=== PATIENT | female | born 1970 | race Caucasian/White ===

== ENCOUNTER 2017-01-02 19:57 | Emergency (ER) | payer OTHER ==
[~2017-01-02] VITALS: Ht 172.7 cm; Wt 123.4 kg
[~2017-01-02 19:57] MED LIST: EPP3/2 IM; SYN137 PO
[2017-01-02 20:01] VITALS: Ht 172.7 cm; Wt 123.4 kg
[2017-01-02] MEDS ORDERED: FAMOTIDINE 20MG/102 ML D5W IV STA (20:15)
[2017-01-02] MEDS ORDERED: DEXAMETHASONE SOD INJ 4 MG/ML VIAL IV STA (20:15)
[2017-01-02 20:26] VITALS: O2SAT 98
[2017-01-02] MEDS ORDERED: LEVO125T4 PO (20:38)
[2017-01-02] MEDS ORDERED: EPINEPHRINE ADULT AUTO-INJECT 0.3 MG SYR IM STA (22:43)
[2017-01-02] MEDS ORDERED: PRED50TA PO (22:46)
[2017-01-02 22:58] VITALS: BP 123/62; PULSE 68; TEMP 36.9; O2SAT 98
--- NOTE | 2017-01-03 18:13 | EMERGENCY ROOM VISIT NOTE ---
History Report prepared by Fernando: Melissa Payan Under the Supervision of: Dr. Larry Pantoja M.D. 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 The patient states that she was stung on the neck by a bee. She has experienced allergic reactions to bees in the past but has never had severe difficulty breathing secondary to them. She has an EpiPen at home, but it is and she did not feel that her symptoms were severe enough to use it. 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 She took 2 Benadryl after being stung but developed lip numbness and tingling after taking them so she came in for further evaluation. The patient is also experiencing a hoarse voice and facial and lip edema. She also had a pruritic rash on her face, but the pruritus resolved with the anti-itch cream that she put on it. The patient adds that she had some chest tightness after being stung, but it has resolved. She also states that her throat feels tight and it feels "weird" to swallow but she is not having any difficulty swallowing. The patient is also experiencing nausea, but states that it could be secondary to the Benadryl because that occasionally happens to her. Pt denies LOC, headache, fevers, chills, diaphoresis, visual changes, neck pain, chest pain, breathing difficulties, vomiting, abdominal pain , back pain, melena, hematochezia, urinary symptoms, weakness, lymphadenopathy, rash other than on her face, or other complaints. The patient denies any problems with taking prednisone in the past. 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 A total of ten systems were reviewed and were otherwise negative. Past Medical & Surgical Medical Problems: (1) Asthma (2) Hypothyroidism Surgical Problems: (1) History of appendectomy (2) History of cholecystectomy (3) Status post breast reduction Family History Cancer Diabetes mellitus Gallbladder disease Heart disease Hypertension Social History Smoking Status: Never Smoker Marital Status: single Occupation Status: employed Current/Historical Medications Scheduled Epinephrine (Epipen), 0.3 MG IM UD Levothyroxine Sodium (Levothyroxine Sodium), 1 TAB PO DAILY Prednisone (Prednisone), 50 MG PO DAILY Allergies Coded Allergies: Lisinopril (Verified Allergy, Severe, internal hives, 01/02/17) Penicillins (Unverified Adverse Reaction, Unknown, INCREASES REFLUX, ) Physical Exam Vital Signs Date Time Temp Pulse Resp B/P (MAP) Pulse Ox O2 Delivery O2 Flow Rate FiO2 01/02/17 22:58 36.9 68 17 123/62 98 01/02/17 22:27 68 17 01/02/17 22:12 70 18 01/02/17 21:57 70 19 01/02/17 21:42 67 19 01/02/17 21:27 72 23 01/02/17 21:24 70 18 123/62 98 Room Air 01/02/17 21:22 123/62 01/02/17 21:12 69 24 01/02/17 20:57 69 17 01/02/17 20:42 70 23 01/02/17 20:27 72 24 01/02/17 20:26 71 01/02/17 20:26 98 Room Air 01/02/17 20:01 36.9 71 16 129/96 99 Room Air Physical Exam GENERAL: Awake, alert, well-appearing, in no distress HENT: Normocephalic, atraumatic. Mild lower lip swelling. Oropharynx unremarkable. EYES: Normal conjunctiva. Sclera non-icteric. NECK: Supple. Hive on right neck without a stinger present. No nuchal rigidity. FROM. No JVD. RESPIRATORY: Clear to auscultation. CARDIAC: Regular rate, normal rhythm. Extremities warm and well perfused. Pulses equal. ABDOMEN: Soft, non-distended. No tenderness to palpation. No rebound or guarding. No masses. RECTAL: Deferred. MUSCULOSKELETAL: Chest examination reveals no tenderness. The back is symmetrical on inspection without obvious abnormality. There is no CVA tenderness to palpation. No joint edema. LOWER EXTREMITIES: Calves are equal size bilaterally and non-tender. No edema. No discoloration. NEURO: Normal sensorium. No sensory or motor deficits noted. SKIN: No rash or jaundice noted. Medical Decision & Procedures Medications Administered Medications (Trade) Dose Ordered Sig/Shona Route Start Time Stop Time Status Last Admin Dose Admin Dexamethasone Sodium Phosphate (Decadron Inj) 10 mg NOW STAT IV 01/02/17 20:15 01/02/17 20:16 DC 01/02/17 20:15 10 MG Famotidine (Pepcid 20mg/100 ml) 20 mg ONE STAT IV 01/02/17 20:15 01/02/17 20:16 DC 01/02/17 20:15 20 MG Epinephrine (Epipen) 0.3 mg UD STAT IM 01/02/17 22:43 01/02/17 22:45 DC 01/02/17 22:57 0.3 MG ED Course 2011: The patient was evaluated in room B10. A complete history and physical exam was performed. 2014: Ordered Famotidine 20 mg IV, Decadron Inj 10 mg IV 2231: I reevaluated the patient. She is feeling much better. I am going to give her an EpiPen to take home with her. Discussed results and discharge instructions: she verbalized understanding and agreement. The patient is ready for discharge. 3: Ordered EpiPen 0.3 mg IM Medical Decision Medication Reconciliation: I attest that I have personally reviewed the patient' s current medication list Blood pressure screening: Patient was found to have normal blood pressure on screening and does not require follow-up. Triage Nursing notes reviewed and agree them. The patient's history was concerning for possible allergic reaction. Differential diagnosis: Etiologies such as allergic reaction, anaphylaxis, urticaria, Robb-Vivek syndrome, toxic epidermal necrolysis, erythema multiforme, cellulitis, as well as others were entertained. Physical examination: As above. ER treatment provided: Continuous cardiac monitoring Pepcid 20 mg IV Decadron 10 mg IV On reassessment the patient felt completely better. It appears the patient had an allergic reaction. The above treatment did well to reverse the symptoms. After prolonged monitoring and frequent reassessments the patient did very well and symptoms resolved. By the evaluation outlined above emergent etiologies such as airway compromise, Robb-Vivek syndrome, toxic epidermal necrolysis, erythema multiforme, cellulitis, as well as others were deemed relatively unlikely. The patient was informed about the findings as listed above. All questions were answered and she was pleased with the treatment. Return instructions were outlined and the patient was discharged in stable condition. Outpatient prescription management: EpiPen prednisone Referral: The patient was referred back to her primary care physician for follow-up in 2- 3 days for a recheck of the current condition. Impression Primary Impression: Allergic reaction Additional Impression: Bee sting Scribe Attestation The scribe's documentation has been prepared under my direction and personally reviewed by me in its entirety. I confirm that the note above accurately reflects all work, treatment, procedures, and medical decision making performed by me. Departure Information Dispostion Home / Self-Care Prescriptions Prednisone (Prednisone) 50 Mg Tab 50 MG PO DAILY for 3 Days, #3 TAB Prov: Larry Pantoja MD 01/02/17 Referrals Evelyn Shah D.O. (PCP) Forms HOME CARE DOCUMENTATION FORM, IMPORTANT VISIT INFORMATION Patient Instructions My [facility] Additional Instructions ALLERGIC REACTION INSTRUCTIONS: DO NOT drive, drink alcohol, operate machinery, or perform dangerous activities today. You were given medications in the ER that can affect your ability to safely function or operate a vehicle. Epi-Pen: Use one injection as instructed for severe allergic reactions associated with shortness of breath, difficulty breathing, or throat or tongue swelling. If you use this injection call 911 or proceed immediately to the nearest Emergency Room. Prednisone 50mg: Once daily until the prescription is finished. It is best to take this earlier in the day as some patients note occasional difficulty falling asleep when taken in the late evening. Diphenhydramine(Benadryl) 25mg: use 25 to 50 mg every six hours for swelling, itching, or hives. This medication is sedating and will cause drowsiness. Avoid alcohol, operating machinery or dangerous equipment, working on ladders or roofs, DRIVING, or situations where being under the influence may be dangerous. Zantac 75: Take two pills twice a day along with Benadryl as needed for swelling , itching, or hives. Most people know this for its affect on the stomach, but it also acts similar to, but less potent than Benadryl for allergic reactions. Both the Benadryl and the Zantac are available [id number]. Continue current medications. Return to the emergency department for worsening of your rash, swelling of your face, lips, tongue, or throat, difficulty breathing, vomiting, or as needed. Follow-up with your primary care physician in 2 to 3 days for a recheck of your current condition. Problem Qualifiers Primary Impression: Allergic reaction Encounter type: initial encounter Qualified Codes: T78.40XA - Allergy, unspecified, initial encounter Additional Impression: Bee sting Encounter type: initial encounter Injury intent: accidental or unintentional Qualified Codes: T63.441A - Toxic effect of venom of bees, accidental (unintentional), initial encounter
== END 2017-01-02 22:59 | disposition home or self-care (01) ==
LOC: C.EDB 19:58
DX: T63.441A Toxic effect of venom of bees, accidental (unintentional), initial encounter (principal); E03.9 Hypothyroidism, unspecified; J45.909 Unspecified asthma, uncomplicated; Z79.899 Other long term (current) drug therapy

== ENCOUNTER → 2017-03-26 | Outpatient (CLI) | payer OTHER ==
[~2017-03-26] MED LIST changes: +LEVO125T4 PO; -SYN137 PO
--- NOTE | 2017-03-27 08:09 | MAMMOGRAPHY REPORT ---
BILATERAL DIGITAL SCREENING MAMMOGRAM TOMOSYNTHESIS WITH CAD: 03/26/2017 CLINICAL HISTORY: Routine screening. Patient has no complaints. TECHNIQUE: Breast tomosynthesis in addition to standard 2D mammography was performed. Current study was also evaluated with a Computer Aided Detection (CAD) system. COMPARISON: Comparison is made to exams dated: 03/23/2016 mammogram, 03/21/2015 mammogram, 03/15/2014 ma mmogram, 03/12/2013 mammogram, 03/06/2012 mammogram, and 12/12/2010 mammogram - [facility] er. BREAST COMPOSITION: The tissue of both breasts is almost entirely fatty. FINDINGS: There is possible skin thickening, architectural distortion and a newly visualized convex appearance of the left anterior breast behind the nipple. Further evaluation with targeted ultrasoun d is recommended. No other suspicious mass, architectural distortion or cluster of microcalcifications is seen bilatera lly. There is evidence of prior reduction mammoplasty and scattered benign-appearing microcalcificat ions. IMPRESSION: ACR BI-RADS CATEGORY 0: INCOMPLETE EVALUATION: NEED ADDITIONAL IMAGING EVALUATION The newly visualized possible skin thickening, architectural distortion and fullness behind the left nipple needs additional imaging evaluation. The patient will be called to schedule an appointment. Approximately 10% of breast cancers are not detected with mammography. A negative mammographic report should not delay biopsy if a clinically suggestive mass is present. Aubree Barton M.D. ay/:03/26/2017 15:39:53 Head Housekeeper: Joan PATHAK(Naomi)([place]), [facility] letter sent: Addl Imaging 0 BI-RADS Code: ACR BI-RADS Category 0: Incomplete Evaluation: Need Additional Imaging Evaluation
== END | disposition home or self-care (01) ==
LOC: C.MAMM 08:35
PROVIDERS: ATTEND Family Medicine
DX: Z12.31 Encounter for screening mammogram for malignant neoplasm of breast (principal); N64.89 Other specified disorders of breast

== ENCOUNTER → 2017-04-01 | Outpatient (CLI) | payer OTHER ==
--- NOTE | 2017-04-01 13:33 | MAMMOGRAPHY REPORT ---
ULTRASOUND OF BOTH BREASTS: 04/01/2017 CLINICAL HISTORY: 46-year-old woman with a personal history of remote reduction mammoplasty called emily carlson from screening mammography for thickening, fullness and possible architectural distortion in the s ubareolar left breast. During diagnostic consultation, the patient reports she has been noticing thickening of the left areo la. No nipple discharge. COMPARISON: Comparison is made to exams dated: 03/26/2017 mammogram, 03/23/2016 mammogram, 03/21/2015 m ammogram, 03/15/2014 mammogram, and 03/12/2013 mammogram - [facility]. FINDINGS: Targeted ultrasound was performed in the periareolar and retroareolar left breast to evalua te for the mammographic fullness, thickening and possible architectural distortion. On visual inspec tion, there is a half-pinon shaped area of smooth thickening of the medial left areola. On ultrasound , there is focal thickening of the left areola measuring up to 9 mm in thickness. This thickening an d and and angular point along the deep margin, but does not definitely extend into the deeper breast parenchyma. Although these findings may be related to prior reduction mammoplasty, there are more pr ominent comparing to remote mammograms and therefore indeterminate. Definitive characterization with tissue sampling is recommended. We will attempt ultrasound-guided core biopsy but if this is unyiel ding, skin biopsy may be needed. IMPRESSION: ACR BI-RADS CATEGORY 4: SUSPICIOUS - FOLLOW-UP RECOMMENDED 1. Left breast ultrasound-guided core biopsy is recommended for focal angular thickening of the left areola, thought to correlate with the mammographic findings. Differential considerations include sc ar tissue and malignancy of both the breast and skin. If pathology results are unyielding, skin biop sy may be needed. These results and recommendations were discussed with the patient at the time of the exam. She tenta tively scheduled the left breast ultrasound guided core biopsy prior to leaving our department. Aubree Barton M.D. ay/:04/01/2017 09:42:58 Triage Rn: Joan PATHAK(Naomi)([place]), [facility] letter sent: Abnormal 4/5 BI-RADS Code: ACR BI-RADS Category 4: Suspicious
== END | disposition home or self-care (01) ==
LOC: C.MAMM 09:18
PROVIDERS: ATTEND Family Medicine
DX: R92.8 Other abnormal and inconclusive findings on diagnostic imaging of breast (principal)

== ENCOUNTER → 2017-04-04 | Outpatient (CLI) | payer OTHER ==
--- NOTE | 2017-04-04 13:14 | Discharge Instructions ---
Discharge Instructions Procedure Procedure Date: Apr 04, 2017. Reason for visit: Left Areola Mass. Discharge Discharge Date: Apr 04, 2017. Discharge Diagnosis: status post breast biopsy Instructions Activity Recommendations: Additional Limitations (see below) Return to School/Work: no limitations Recommended Home Diet: No Limitations Provider Instructions: ACTIVITY RECOMMENDATIONS: * No lifting, pushing, pulling or exercising the affected side for three days. RETURN TO SCHOOL/WORK: * You may return to work/school after the procedure, but do not perform any strenuous activities for 24 to 48 hours. MEDICATIONS: * Tylenol (two 325 mg) every four to six hours if needed for mild pain (if not allergic to Tylenol). DIET: * Resume previous diet. SPECIAL CARE INSTRUCTIONS: * Keep biopsy site dry for 24 hours. May shower after 24 hours, but do not soak (bathe) incision. * May remove Tegaderm (plastic patch) tomorrow AFTER showering. * Leave the steri-strips on for one week. Allow the steri-strips to fall off by themselves. If not off after one week, you may remove them. You may place a Bandaid crosswise over the strips, if desired. * Apply ice 10 minutes on and 10 minutes off as needed. * Wear a bra at bedtime to sleep more comfortably for 2-3 days. * Your referring physician should have the results after approximately 5 to 7 business days. * Call for unusual bleeding, fever, drainage, etc or if you have any questions call during normal business hours or after hours call Dr De Luna, . FOLLOW UP VISIT: Follow-up with Referring Physician as scheduled. Allergies Coded Allergies: Lisinopril (Verified Allergy, Severe, internal hives, 01/02/17) Penicillins (Unverified Adverse Reaction, Unknown, INCREASES REFLUX, ) Adenike Guajardo Recommendations: Call your doctor if: * Temperature above 101 degrees * Pain not relieved by pain medicine ordered * There is increased drainage or redness from any incision * You have any unanswered questions or concerns. Your Doctors Instructions noted above were prepared by provider Renetta De Luna. Patient Signature Section: Patient Instructions Signature Page Shannan Bucio Patient (or Guardian) Signature/Date: I have read and understand the instructions given to me by my caregivers. Caregiver/RN/Doctor Signature/Date: The above-named patient and/or guardian has received patient instructions on this date. + Original Patient Signature Page (only) stays with chart. Please make copy for patient.
--- NOTE | 2017-04-04 15:37 | MAMMOGRAPHY REPORT ---
UNILATERAL LEFT DIGITAL DIAGNOSTIC MAMMOGRAM TOMOSYNTHESIS: 04/04/2017 CLINICAL HISTORY: Status post left breast biopsy. TECHNIQUE: Breast tomosynthesis in addition to standard 2D mammography was performed. Postprocedura l left CC and ML tomosynthesis images including C views were obtained. COMPARISON: Comparison is made to exams dated: 04/01/2017 ultrasound, 03/26/2017 mammogram, 03/23/2016 mammogram, 03/21/2015 mammogram, 03/15/2014 mammogram, and 03/12/2013 mammogram - [facility]ter. BREAST COMPOSITION: The tissue of the left breast is almost entirely fatty. FINDINGS: A new biopsy marker clip is seen within the immediate subareolar breast at the site of the biopsied thickening of the left areola/subareolar breast. No significant postbiopsy hematoma is see n. IMPRESSION: POST PROCEDURE IMAGING FOR MARKER PLACEMENT New biopsy marker clip status post left breast biopsy. Pathology results are pending. Approximately 10% of breast cancers are not detected with mammography. A negative mammographic report should not delay biopsy if a clinically suggestive mass is present. Renetta De Luna M.D. /:04/04/2017 13:59:51 Rug Inspector: Lizet PATHAK(Naomi)([place]), [facility] BI-RADS Code: Post Procedure Imaging For Marker Placement
--- NOTE | 2017-04-04 15:37 | MAMMOGRAPHY REPORT ---
ULTRASOUND GUIDED BIOPSY LEFT BREAST: 04/04/2017 CLINICAL HISTORY: Focal angular thickening of the left areola. PATIENT CONSENT: The procedure, risks and benefits were discussed with the patient and informed writt en consent was obtained. A timeout was performed immediately prior to the procedure. PROCEDURE DESCRIPTION: With ultrasound guidance, aseptic technique, and lidocaine as the local anesth etic (1% lidocaine to anesthetize the skin and 1% lidocaine with epinephrine to anesthetize the deepe r tissues), the focal angular thickening of the left areolar/subareolar breast was sampled 5 times wi th a 14-gauge Achieve biopsy needle. Immediately thereafter, with ultrasound guidance, aseptic techni que, and lidocaine as the local anesthetic, a metallic localizer clip was placed at the biopsy site. Direct pressure was applied to the site immediately post procedure and hemostasis was achieved. Pos tprocedure unilateral mammograms were performed to confirm clip placement. The patient tolerated the procedure without complication. She was given wound care instructions. The specimens were sent to athology for analysis. COMPARISON: Comparison is made to exams dated: 04/01/2017 ultrasound, 03/26/2017 mammogram, 03/23/2016 mammogram, 03/21/2015 mammogram, 03/15/2014 mammogram, and 03/12/2013 mammogram - [facility] nter. IMPRESSION: ULTRASOUND GUIDED BIOPSY Ultrasound guided core needle biopsy of the focal angular thickening of the left areola/subareolar br east, with clip placement. The patient will receive pathology results from her referring provider. Renetta De Luna M.D. ah/:04/04/2017 13:58:28 Book Illustrator: Lizet MACKENZIE)([place]), [facility]
== END | disposition home or self-care (01) ==
LOC: C.MAMM 12:39
PROVIDERS: ATTEND Family Medicine
DX: N63 Unspecified lump in breast (principal); C50.912 Malignant neoplasm of unspecified site of left female breast

== ENCOUNTER → 2017-05-20 | Day surgery (SDC) | payer OTHER ==
[2017-05-13 09:52] VITALS: BMI 41.0
[2017-05-13 10:24] LABS: BASO % 0.7 %; BASO ABS # 0.04 K/uL (0-0.2); COMPLETE YES; EOS % 3.1 %; HEMATOCRIT 37.8 % (37-47); IG% 0.2 %; LYMPH % 25.3 %; LYMPH ABS # 1.49 K/uL (1.2-3.4); MEAN CELL VOLUME 86.9 fL (80-100); MEAN CORPUSCULAR HEMOGLOBIN 28.7 pg (25-34); MEAN CORPUSCULAR HGB CONC 33.1 g/dl (32-36); MEAN PLATELET VOLUME 9.6 fL (7.4-10.4); NEUT % 63.7 %; PLATELET COUNT 336 K/uL (130-400); RED BLOOD COUNT 4.35 M/uL (4.2-5.4); WHITE BLOOD COUNT 5.88 K/uL (4.8-10.8)
--- NOTE | 2017-05-13 10:24 | PAT Medication Instructions ---
Service Date May 13, 2017. Current Home Medication List Albuterol Hfa (Ventolin Hfa), Unknown Dose INH Q6H PRN for ASTHMA Epinephrine (Epipen), 0.3 MG IM UD Levothyroxine Sodium (Levothyroxine Sodium), 1 TAB PO QAM Multivitamin (Multivitamin), 1 TAB PO QAM [Acid Media Producer ], Unknown Dose Medication Instructions For Your Scheduled Surgery Epinephrine (Epipen), 0.3 MG IM UD (use as directed if needed) - Hold the following medications the morning of surgery: [Acid Media Producer], Unknown Dose Multivitamin (Multivitamin), 1 TAB PO QAM - Take the following medications the morning of surgery with a sip of water: Levothyroxine Sodium (Levothyroxine Sodium), 1 TAB PO QAM Albuterol Hfa (Ventolin Hfa), Unknown Dose INH Q6H PRN for ASTHMA (if needed) - Take the following medications as scheduled the night before surgery: Albuterol Hfa (Ventolin Hfa), Unknown Dose INH Q6H PRN for ASTHMA (if needed) If you have any questions please call us at [phone] or [phone] or [phone]
[2017-05-13 10:31] LABS: BUN/CREATININE RATIO 11.9 (10-20); CALCIUM 8.8 mg/dl (8.5-10.1); CREATININE 0.64 mg/dl (0.60-1.20)
[~2017-05-20] VITALS: Ht 170.2 cm; Wt 119.0 kg
[~2017-05-20] MED LIST changes: +ACID REDUCER; +ARISTA ABSORBABLE HEMOSTAT 3GM TOP ONE; +ATROPINE SULFATE 0.1 MG/ML 5ML SYR IV PRN; +BUPIVACAINE/EPINEPHRINE 0.5% MPF 1:200,000 30 ML VIAL ONE; +CEFAZOLIN 2000MG IV PUSH 10 ML IV SCH; +DEXAMETHASONE SOD INJ 4 MG/ML VIAL ONE; +EpHEDrine SULFATE INJ 50 MG/ML AMP IV PRN; +FENTANYL CITRATE INJ 50 MCG/1 ML 2 ML VIAL ONE; +FLUMAZENIL 0.1 MG/1 ML 10 ML VIAL IV PRN; +GLYCOPYRROLATE INJ 0.2 MG/ML VIAL ONE; +HYDR-5688 PO; +HYDROCODONE/ACETAMOPHEN 5/325MG TAB PO PRN; +HYDROmorphone INJ 1 MG/ML SYR IV PRN; +IBUPROFEN 600 MG TAB PO PRN; +LABETALOL HCL IV 5 MG/ML 20ML IV PRN; +LACTATED RINGER'S 1000ML 1,000 ML IV SCH; -LEVO125T4 PO; +LEVO125T5 PO; +LIDOCAINE HCL 2% 2 ML VIAL (20MG/ML) ONE; +MIDAZOLAM HCL 1 MG/ML 2ML VIAL ONE; +MULT-506 PO; +NALOXONE HCL 0.4 MG/1 ML VIAL/CARP IV PRN; +NEOSTIGMINE METHYLSULFATE 5 MG/5 ML SYR ONE; +ONDANSETRON INJ 2 MG/ML 2 ML VIAL IV PRN; +ONDANSETRON INJ 2 MG/ML 2 ML VIAL ONE; +PRLSR20 PO; +PROMETHAZINE HCL INJ 12.5 MG in SODIUM CHLORIDE 0.9% 50ML 50 ML IV PRN; +PROPOFOL IV EMULSION 10 MG/ML 20 ML VIAL IV ONE; +SODIUM CHLORIDE 0.9% 1000ML 1,000 ML IV SCH; +SUCCINYLCHOLINE CHLORIDE 20 MG/ML 10 ML VIAL IV ONE; +VNTHFA/IN INH
[2017-05-20 08:32] LABS: PREG INTERNAL NEGATIVE QC NEG CLEAR BACKGROUND; PREG INTERNAL POSITIVE QC POS CONTROL LINE
--- NOTE | 2017-05-20 08:45 | DIAGNOSTIC IMAGING REPORT ---
NUCLEAR MEDICINE LEFT BREAST LYMPH SENTINEL NODE ID CLINICAL HISTORY: BREAST CA COMPARISON STUDY: No previous studies for comparison. FINDINGS: A timeout was performed. The patient was prepped in sterile fashion. 5 periareolar intradermal injections were performed, utilizing a total dose of 0.49 mCi of technetium 99m Lymphoseek. IMPRESSION: Left breast lymphoscintigraphic injections were performed. Electronically signed by: Margarito Irizarry M.D. 05/20/2017 8:44 AM Dictated Date/Time: 05/20/2017 8:41 AM
[2017-05-20 08:51] VITALS: BP 140/71; PULSE 71; TEMP 36.9; O2SAT 97; Ht 170.2 cm; Wt 119.0 kg
--- NOTE | 2017-05-20 10:22 | History & Physical Bridge Note ---
H&P Re-Evaluation Bridge Note: I have examined the patient, reviewed the History & Physical and in the interval since the performance of the History & Physical I have noted the following changes of clinical significance: No changes noted/ please see note from 05/08/17. plan is to excise the mass inclucing NAC and perform a SLN biopsy. rediscussed risks/options. questions answered. ok to proceed.
--- NOTE | 2017-05-20 12:15 | Discharge Instructions ---
Discharge Instructions Date of Service May 20, 2017. Admission Reason for Admission: Left Breast Cancer W/Lymph Inj Discharge Discharge Diagnosis / Problem: left breast cancer Discharge Goals Goal(s): Diagnostic testing, Therapeutic intervention, Prevent Disease Progression Activity Recommendations Activity Limitations: as noted below Lifting Limitations: no more than 10 pounds Exercise/Sports Limitations: until after follow-up appointment May Resume Sexual Activity: after follow-up appointment Shower/Bathe: tomorrow . Instructions / Follow-Up Instructions / Follow-Up call [phone] with any questions or problems. Current Hospital Diet Patient's current hospital diet: Discharge Diet Recommended Diet: Regular Diet Procedures Procedures Performed: Left breast partial mastectomy, with sentinel node biopies Pending Studies Studies pending at discharge: yes List of pending studies: pathology report Medical Emergencies . Who to Call and When: Medical Emergencies: If at any time you feel your situation is an emergency, please call 911 immediately. . Non-Emergent Contact Non-Emergency issues call your: Primary Care Provider, Surgeon Call Non-Emergent contact if: temperature is above 101, wound has increased drainage, wound has increased redness, wound has increased pain . "Provider Documentation" section prepared by Shawn Tomlin. . VTE Core Measure Inpt VTE Proph given/why not?: SCD's
--- NOTE | 2017-05-20 12:22 | [facility] Operative Report ---
Operative Report Operative Date May 20, 2017. Pre-Operative Diagnosis Left Breast Cancer Post-Operative Diagnosis Left Breast Cancer Procedure(s) Performed Left breast partial mastectomy, with sentinel node biopies Surgeon Dr. Tomlin Building Cleaner Surgeon(s) Ervin Rodriguez PA-C Estimated Blood Loss 20ml Findings normal anatomy/neg SLN's Specimens A. Portion of left breast- 2 short sutures = superior/ 1 long suture = lateral sent to lab fresh 1149 Anesthesia get Complication(s) None Disposition Recovery Room / PACU Description of Procedure Prior to being brought to the operating room the patient had been in nuclear medicine and obtained technetium injection in the periareolar area. The patient was then brought to the operating room placed in supine position with left arm extended. The entire upper chest and arm were sterilely prepped and draped in usual fashion. We began by using using the neoprobe device to find the "hot" lymph nodes in the left axilla. We made a small incision directly over this area and used electrocautery to carry this down through the soft tissue. Once in the cavity we got a nuclear count of around 150. We were able to continue using traction countertraction and small amounts of electrocautery to eventually work away down to the visible nodes. We removed these in 1 specimen. We checked them outside the cavity and in fact these were the "hot" nodes. These were sent to pathology for frozen section. We thoroughly irrigated the wound. We checked the entire area for any additional hot lymph nodes of which there were none. The background noise after removing the nodes was completely negative. We thoroughly irrigated the wound and stopped any small bleeding points using cautery. We packed with wet gauze. We then used a fresh blade to make an elliptical incision around her nipple areola complex. We created skin flaps using electrocautery and carried this down through in 360 . We made good flaps and came underneath the specimen which was noted to be relatively superficial and likely involved the skin of the nipple. Once the specimen was completely removed we then marked it with stitches using 2 short sutures superiorly and one long suture for the lateral margin. This was then sent to pathology for permanent sectioning. We thoroughly irrigated the wound controlled any bleeders using electrocautery. We closed it in multiple layers using 2-0 Vicryl for deep layers 3-0 Vicryl for mid layers and 4-0 Monocryl for the skin. Benzoin /Steri-Strips were used as a dressing as well as a Surgi- Bra. By this point in time pathology had called in and the sentinel lymph nodes were fortunately negative for any malignant cells. We performed a final irrigation and used Allyn powder. We then closed it also multiple layers using 2-0 Vicryl 3-0 Vicryl 4-0 Monocryl. Sterile dressing was applied. The patient was awaken extubated and transferred recovery in stable condition I attest to the content of the Intraoperative Record and any orders documented therein. Any exceptions are noted below.
--- NOTE | 2017-05-20 12:50 | Anesthesiology Progress Note ---
Anesthesia Post Op Note Date & Time May 20, 2017 at 12:50 Vital Signs Pain Intensity: 0 Vital Signs Past 12 Hours Date Time Temp Pulse Resp B/P (MAP) Pulse Ox O2 Delivery O2 Flow Rate FiO2 05/20/17 12:43 168/88 05/20/17 12:41 90 13 05/20/17 12:41 89 13 170/88 94 05/20/17 12:38 36.6 92 18 168/88 95 Room Air 05/20/17 12:36 95 16 05/20/17 12:36 94 16 179/91 96 05/20/17 12:31 98 30 175/89 95 05/20/17 12:31 97 30 05/20/17 12:30 97 18 95 05/20/17 12:30 96 18 05/20/17 12:26 174/92 05/20/17 12:25 100 19 05/20/17 12:25 101 19 98 05/20/17 12:21 163/83 05/20/17 12:20 106 19 97 05/20/17 12:20 106 19 05/20/17 12:15 124 13 170/86 05/20/17 12:15 13 05/20/17 12:15 36.1 124 16 170/86 (118) 96 Oxymask 10 05/20/17 08:51 36.9 71 18 140/71 (94) 97 Room Air Notes Mental Status: alert / awake / arousable, participated in evaluation Pt Amnestic to Procedure: Yes Nausea / Vomiting: adequately controlled Pain: adequately controlled Airway Patency, RR, SpO2: stable & adequate BP & HR: stable & adequate Hydration State: stable & adequate Anesthetic Complications: no major complications apparent
[2017-05-20 13:00] VITALS: BP 151/88; PULSE 89; TEMP 36.7; O2SAT 93
[2017-05-20 13:30] VITALS: BP 173/83; PULSE 84; O2SAT 95
[2017-05-20 14:00] VITALS: BP 178/81; PULSE 82; TEMP 37; O2SAT 96
== END | disposition home or self-care (01) ==
LOC: C.ACU 07:28
PROVIDERS: ATTEND Surgery
DX: C50.912 Malignant neoplasm of unspecified site of left female breast (principal); E03.9 Hypothyroidism, unspecified; Z79.899 Other long term (current) drug therapy

== ENCOUNTER 2017-06-04 07:37 | Day surgery (SDC) | payer OTHER ==
[2017-06-03 09:00] VITALS: BMI 41.0
[2017-06-03 11:22] VITALS: BMI 41.0
[~2017-06-04] VITALS: Ht 170.2 cm; Wt 120.5 kg
[~2017-06-04 07:37] MED LIST changes: -ACID REDUCER; -ARISTA ABSORBABLE HEMOSTAT 3GM TOP ONE; -ATROPINE SULFATE 0.1 MG/ML 5ML SYR IV PRN; -BUPIVACAINE/EPINEPHRINE 0.5% MPF 1:200,000 30 ML VIAL ONE; -CEFAZOLIN 2000MG IV PUSH 10 ML IV SCH; -DEXAMETHASONE SOD INJ 4 MG/ML VIAL ONE; -EPP3/2 IM; -EpHEDrine SULFATE INJ 50 MG/ML AMP IV PRN; -FENTANYL CITRATE INJ 50 MCG/1 ML 2 ML VIAL ONE; -FLUMAZENIL 0.1 MG/1 ML 10 ML VIAL IV PRN; -GLYCOPYRROLATE INJ 0.2 MG/ML VIAL ONE; -HYDR-5688 PO; -HYDROCODONE/ACETAMOPHEN 5/325MG TAB PO PRN; -HYDROmorphone INJ 1 MG/ML SYR IV PRN; -IBUPROFEN 600 MG TAB PO PRN; -LABETALOL HCL IV 5 MG/ML 20ML IV PRN; -LIDOCAINE HCL 2% 2 ML VIAL (20MG/ML) ONE; -MIDAZOLAM HCL 1 MG/ML 2ML VIAL ONE; -NALOXONE HCL 0.4 MG/1 ML VIAL/CARP IV PRN; -NEOSTIGMINE METHYLSULFATE 5 MG/5 ML SYR ONE; -ONDANSETRON INJ 2 MG/ML 2 ML VIAL IV PRN; -ONDANSETRON INJ 2 MG/ML 2 ML VIAL ONE; -PROMETHAZINE HCL INJ 12.5 MG in SODIUM CHLORIDE 0.9% 50ML 50 ML IV PRN; -PROPOFOL IV EMULSION 10 MG/ML 20 ML VIAL IV ONE; -SODIUM CHLORIDE 0.9% 1000ML 1,000 ML IV SCH; -SUCCINYLCHOLINE CHLORIDE 20 MG/ML 10 ML VIAL IV ONE
[2017-06-04 08:30] VITALS: BP 152/76; PULSE 72; TEMP 37.1; O2SAT 100; Ht 170.2 cm; Wt 120.5 kg
[2017-06-04] MEDS ORDERED: LIDOCAINE HCL 2% 2 ML VIAL (20MG/ML) ONE (08:38)
[2017-06-04] MEDS ORDERED: PROPOFOL IV EMULSION 10 MG/ML 20 ML VIAL IV ONE (08:38)
[2017-06-04] MEDS ORDERED: FENTANYL CITRATE INJ 50 MCG/1 ML 2 ML VIAL ONE (08:39)
[2017-06-04] MEDS ORDERED: MIDAZOLAM HCL 1 MG/ML 2ML VIAL ONE ×2 (08:39→09:46)
--- NOTE | 2017-06-04 09:13 | History & Physical Bridge Note ---
H&P Re-Evaluation Bridge Note: I have examined the patient, reviewed the History & Physical and in the interval since the performance of the History & Physical I have noted the following changes of clinical significance: No changes noted
[2017-06-04] MEDS ORDERED: NURSING VERBAL MED ORDER ONE (09:15)
[2017-06-04] MEDS ORDERED: HEPARIN SOD (PORCINE) 1000 UNIT/ML 10 ML VIAL ONE (09:28)
[2017-06-04] MEDS ORDERED: BUPIVACAINE/EPINEPHRINE 0.5% MPF 1:200,000 30 ML VIAL ONE (09:28)
[2017-06-04] MEDS ORDERED: CEFAZOLIN 3000MG IV PUSH 15 ML IV SCH (09:30)
--- NOTE | 2017-06-04 09:30 | [facility] Operative Report ---
Operative Report Operative Date Jun 04, 2017. Pre-Operative Diagnosis breast cancer I attest to the content of the Intraoperative Record and any orders documented therein. Any exceptions are noted below.
--- NOTE | 2017-06-04 09:31 | History and Physical ---
History & Physical Date Jun 04, 2017. Chief Complaint left breast cancer History of Present Illness The patient is a 46 year old female with complaints of Past Medical/Surgical History Medical Problems: (1) Asthma (2) Hypothyroidism Surgical Problems: (1) History of appendectomy (2) History of cholecystectomy (3) Status post breast reduction Additional History Hepatic Disease: No Endocrine Disorder: No Kidney Disease: No Hypertension: No Heart Disease: No Bleeding Tendencies: No Infectious Diseases: No Allergies Coded Allergies: BEE STING (Verified Allergy, Severe, ANAPHYLAXIS, 06/04/17) Lisinopril (Verified Allergy, Severe, internal hives, 06/04/17) Penicillins (Verified Adverse Reaction, Unknown, INCREASES REFLUX, ) Home Medications Scheduled Levothyroxine Sodium (Levothyroxine Sodium), 1 TAB PO QAM Multivitamin (Multivitamin), 1 TAB PO QAM Scheduled PRN Albuterol Hfa (Ventolin Hfa), Unknown Dose INH Q6H PRN for ASTHMA Omeprazole (Prilosec), 20 MG PO DAILY PRN for STOMACH Physical Examination Skin: warm/dry, no rash Eyes: EOMI, sclerae normal Head: normocephalic, atraumatic Neck: supple, trachea midline Respiratory/Chest: no respiratory distress Cardiovascular: regular rate, rhythm Abdomen / GI: normal bowel sounds, non tender Extremities: normal inspection Neurologic/Psych: alert, oriented x 3 Diagnosis left breast cancer Plan of Treatment will place right subclavian mediport discussed risks including pneumothorax questions answered ok to proceed.
[2017-06-04] MEDS ORDERED: ONDANSETRON INJ 2 MG/ML 2 ML VIAL ONE (10:00)
[2017-06-04] MEDS ORDERED: HYDR-5688 PO (10:33)
[2017-06-04] MEDS ORDERED: SODIUM CHLORIDE 0.9% 1000ML 1,000 ML IV SCH (10:40)
--- NOTE | 2017-06-04 10:40 | Discharge Instructions ---
Discharge Instructions Date of Service Jun 04, 2017. Visit Reason for Visit: Breast Cancer Discharge Discharge Diagnosis / Problem: Breast Cancer Discharge Goals Goal(s): Decrease discomfort, Improve function Activity Recommendations Activity Limitations: as noted below Lifting Limitations: no more than 10 pounds Exercise/Sports Limitations: until after follow-up appointment Shower/Bathe: tomorrow Driving or Machine Use: resume 3 days after discharge (When no longer using narcotic pain medication.) Anesthesia . Post Anesthesia Instructions: If you have had General Anesthesia or IV Sedation: * Do not drive today. * Resume driving when surgeon permits. * Do not make important decisions or sign legal documents today. * Call surgeon for: 1. Temperature elevations greater than 101 degrees F. 2. Uncontrollable pain. 3. Excessive bleeding. 4. Persistent nausea and vomiting. 5. Medication intolerance (nausea, vomiting or rash). * For nausea and vomiting use only clear liquids such as: tea, soda, bouillon until nausea subsides, then gradually increase diet as tolerated. * If you have any concerns or questions, call your surgeon's office. If physician is unavailable and it is an emergency, call 911 or go to the nearest emergency room. . Instructions / Follow-Up Instructions / Follow-Up Please follow-up with Dr. Tomlin in the office in 2 weeks. Please call our office to schedule an appointment if you have not done so already. You have been given a prescription of [place] for pain. You may alternate this with Ibuprofen for better pain relief. Please do not take tylenol while using the [place] as it already contains tylenol. You may remove your bandage tomorrow. Please contact our office with any further questions or concerns. Diet Recommendations Recommended Home Diet: no limitations, resume previous diet Procedures Procedures Performed: Insertion of Right Subclavian Mediport Using Fluoroscopy Pending Studies Studies pending at discharge: no Medical Emergencies . Who to Call and When: Medical Emergencies: If at any time you feel your situation is an emergency, please call 911 immediately. . Non-Emergent Contact Non-Emergency issues call your: Primary Care Provider, Surgeon Call Non-Emergent contact if: you have a fever, temperature is above 101.5, your pain is not controlled, your pain is worsening, wound has increased drainage, wound has increased redness . . "Provider Documentation" section prepared by Hitesh Eli. . [place] Drug Monitoring Program Search Results: patient reviewed within database, no issues identified
--- NOTE | 2017-06-04 10:44 | [facility] Operative Report ---
Operative Report Operative Date Jun 04, 2017. Pre-Operative Diagnosis Left Breast Cancer Post-Operative Diagnosis Same as preop Procedure(s) Performed Insertion of Right Subclavian Mediport Using Fluoroscopy Surgeon Dr. Tomlin Truck Trailer Final Inspector Surgeon(s) Hitesh Mcconnell PA-C Estimated Blood Loss 5 ml Findings normal anatomy Specimens None per Surgeon Anesthesia MAC Complication(s) None Disposition Recovery Room / PACU Description of Procedure After informed consent was obtained the patient was taken the operating room placed in supine position with the right arm tucked. She was placed in a slight Trendelenburg position. The upper chest was sterilely prepped and draped usual fashion. After timeout I began by creating a field block with some Marcaine just below the angle of the right clavicle. We then made a horizontal incision with 15 blade scalpel and carried this down through the soft tissues electrocautery. When we got to the pectoralis muscle I then used blunt finger dissection to create a pocket to house the Mediport. Next we used an 18-gauge finder needle to access right subclavian vein without difficulty. A guidewire was passed under fluoroscopy into the superior vena cava. We then advanced a vascular dilator with peel-away sheath also under fluoroscopy over the guidewire. Next we cut the catheter to appropriate size and connected it to the Mediport. The Mediport was placed into the housing pocket. We then removed the vascular dilator as well as guidewire and advanced the catheter through the peel-away sheath. The sheath was then peeled away leaving the catheter behind. It withdrew dark venous blood without difficulty and we flushed with heparin solution. We verified position under fluoroscopy and then secured the port to the muscle using 0 Ethibond with 3 point fixation. The wound was thoroughly irrigated and closed in 2 layers using 3-0 Monocryl for both layers. A sterile dressing was applied My physician's senior court office assistant was present throughout the entire case. He had obtained exposure with retractors as well as assist with the guidewire sheath and handling all instrumentation etc. He also help close the wound and applied a bandage I attest to the content of the Intraoperative Record and any orders documented therein. Any exceptions are noted below.
[2017-06-04] MEDS ORDERED: ONDANSETRON INJ 2 MG/ML 2 ML VIAL IV PRN ×2 (10:45)
[2017-06-04] MEDS ORDERED: FENTANYL CITRATE INJ 50 MCG/1 ML 2 ML VIAL IV PRN (10:45)
[2017-06-04] MEDS ORDERED: ATROPINE SULFATE 0.1 MG/ML 5ML SYR IV PRN (10:45)
[2017-06-04] MEDS ORDERED: IBUPROFEN 600 MG TAB PO PRN (10:45)
[2017-06-04] MEDS ORDERED: HYDROCODONE/ACETAMOPHEN 5/325MG TAB PO PRN ×2 (10:45)
--- NOTE | 2017-06-04 11:06 | DIAGNOSTIC IMAGING REPORT ---
SINGLE VIEW CHEST CLINICAL HISTORY: Status post infusion port placement. FINDINGS: An AP, portable, upright chest radiograph is compared to study dated 01/14/2014 and correlated with chest CT dated 01/03/2009. The examination is degraded by portable technique and patient rotation. A right subclavian central venous infusion port has been placed. The tip of the catheter projects over the cavoatrial junction. There is focal kinking of the proximal catheter. The cardiomediastinal silhouette is unremarkable. There is elevation of the right hemidiaphragm and bibasilar atelectasis. No airspace consolidation, large pleural effusion, or pneumothorax is seen. The bony thorax is grossly intact. Degenerative change and scoliosis are noted in the thoracic spine. IMPRESSION: 1. A right subclavian central venous infusion port has been placed as detailed above. No pneumothorax is identified post procedure. 2. There is focal kinking of the catheter proximally which is of indeterminate significance. 3. The lungs are clear. Electronically signed by: Roel Duncan M.D. 06/04/2017 11:05 AM Dictated Date/Time: 06/04/2017 11:01 AM
[2017-06-04 11:20] VITALS: BP 141/68; PULSE 84; TEMP 36.7; O2SAT 100
[2017-06-04 11:50] VITALS: BP 160/78; PULSE 77; TEMP 36.4; O2SAT 97
--- NOTE | 2017-06-04 12:07 | Anesthesiology Progress Note ---
Anesthesia Post Op Note Date & Time Jun 04, 2017 at 12:07 Vital Signs Pain Intensity: 0 Vital Signs Past 12 Hours Date Time Temp Pulse Resp B/P (MAP) Pulse Ox O2 Delivery O2 Flow Rate FiO2 06/04/17 11:50 36.4 77 18 160/78 97 Room Air 06/04/17 11:20 36.7 84 18 141/68 100 Room Air 06/04/17 10:59 74 19 06/04/17 10:59 75 19 96 06/04/17 10:57 150/77 06/04/17 10:54 73 16 06/04/17 10:54 75 16 95 06/04/17 10:52 139/77 06/04/17 10:50 37.0 16 139/77 (86) 95 Room Air 06/04/17 10:49 77 19 06/04/17 10:49 76 19 94 06/04/17 10:47 149/76 06/04/17 10:44 77 22 95 06/04/17 10:44 78 22 06/04/17 10:43 79 20 06/04/17 10:43 79 20 95 06/04/17 10:41 149/73 06/04/17 10:38 81 23 06/04/17 10:38 81 23 94 06/04/17 10:36 140/73 06/04/17 10:34 138/73 06/04/17 10:33 36.3 80 12 138/73 (103) 95 Nasal Cannula 2 06/04/17 10:33 82 14 06/04/17 10:33 81 14 95 06/04/17 08:30 37.1 72 18 152/76 (101) 100 Room Air Notes Mental Status: alert / awake / arousable, participated in evaluation Pt Amnestic to Procedure: Yes Nausea / Vomiting: adequately controlled Pain: adequately controlled Airway Patency, RR, SpO2: stable & adequate BP & HR: stable & adequate Hydration State: stable & adequate Anesthetic Complications: no major complications apparent
== END 2017-06-04 12:01 | disposition home or self-care (01) ==
LOC: C.ACU 07:37
PROVIDERS: ATTEND Surgery
DX: C50.912 Malignant neoplasm of unspecified site of left female breast (principal); J45.909 Unspecified asthma, uncomplicated; G47.33 Obstructive sleep apnea (adult) (pediatric); K21.9 Gastro-esophageal reflux disease without esophagitis; K44.9 Diaphragmatic hernia without obstruction or gangrene; E03.9 Hypothyroidism, unspecified; Z90.49 Acquired absence of other specified parts of digestive tract

== ENCOUNTER → 2017-06-12 | Outpatient (CLI) | payer OTHER ==
[~2017-06-12] MED LIST changes: -LACTATED RINGER'S 1000ML 1,000 ML IV SCH; +PERFLUTREN LIPID MICROSPHERE (DEFINITY) IV ONE
--- NOTE | 2017-06-12 17:30 | ECHOCARDIOGRAM REPORT ---
*NOTICE TO RECEIVING CONSTITUTION PARTY AGENCY This information is strictly Confidential and protected under [place] law. [place] law prohibits you from making any further disclosure of this information unless further disclosure is expressly permitted by the written consent of the person to whom it pertains or is authorized by law. A general authorization for the release of medical or other information is not sufficient for this purpose. Hospital accepts no responsibility if the information is made available to any other person, INCLUDING THE PATIENT. Interpretation Summary * Name: ROX LANDAVERDE Study Date: 06/12/2017 01:47 PM BP: 160/78 mmHg * Patient Location: [facility], [place], [facility] HR: 78 * : 1970 (M/d/yyyy) Gender: Female Height: 67 in * Age: 46 yrs Ethnicity: [place] Weight: 265 lb * Ordering Physician: Pk De Oliveira * Referring Physician: Pk De Oliveira * Performed By: Cynthia Padilla RCS * * Reason For Study: BREAST CANCER * BSA: 2.3 m2 * -- Conclusions -- * 1. Normal LV size. Normal LV wall thickness. * 2. Normal LV systolic function. LVEF 60-65%. No regional wall motion abnormalities. * 3. RV not well visualized. Size and function appears grossly normal. * 4. No significant valvular pathology. * 5. No prior studies for comparison. Procedure Details * A complete two-dimensional transthoracic echocardiogram was performed (2D, M-mode, Doppler and color flow Doppler). * The study was technically difficult. Left Ventricle * The left ventricle is grossly normal size. * There is normal left ventricular wall thickness. * Ejection Fraction = 60-65%. * No regional wall motion abnormalities noted. Right Ventricle * The right ventricle is not well visualized. * The right ventricle is grossly normal size. * The right ventricular systolic function is qualitatively normal. Atria * The left atrium is not well visualized. * Right atrium not well visualized. * No ASD detected; PFO is not assessed. Mitral Valve * The mitral valve is grossly normal. * There is no mitral valve stenosis. * There is no mitral regurgitation noted. Tricuspid Valve * The tricuspid valve is not well visualized. * There is trace tricuspid regurgitation. Aortic Valve * The aortic valve is not well visualized. * No hemodynamically significant valvular aortic stenosis. * There is no significant aortic regurgitation. Pulmonic Valve * The pulmonary valve is inadequately visualized, but the Doppler data is adequate for interpretation. * Pulmonic stenosis is absent. * There is no significant pulmonary regurgitation. Great Vessels * The aortic root and proximal ascending aorta are normal sized. Pericardium/Pleural * There is no pericardial effusion. MMode 2D Measurements and Calculations IVSd 1.7 cm IVSs 2.1 cm LVIDd 4.7 cm LVIDs 3.3 cm LVPWd 1.1 cm LVPWs 1.2 cm IVS/LVPW 1.5 FS 28.7 % EDV(Teich) 101.5 ml ESV(Teich) 45.3 ml EF(Teich) 55.3 % EDV(cubed) 102.7 ml ESV(cubed) 37.2 ml EF(cubed) 63.8 % % IVS thick 25.8 % % LVPW thick 3.1 % LV mass(C)d 267.9 grams LV mass(C)dI 117.5 grams/m\S\2 LV mass(C)s 213.2 grams LV mass(C)sI 93.5 grams/m\S\2 SV(Teich) 56.2 ml SI(Teich) 24.6 ml/m\S\2 SV(cubed) 65.6 ml SI(cubed) 28.8 ml/m\S\2 Ao root diam 2.4 cm Ao root area 4.4 cm\S\2 LA dimension 4.1 cm LA/Ao 1.8 LVOT diam 1.9 cm LVOT area 2.8 cm\S\2 LVAd ap4 34.5 cm\S\2 LVLd ap4 8.2 cm EDV(MOD-sp4) 117.7 ml EDV(sp4-el) 123.3 ml LVAs ap4 21.2 cm\S\2 LVLs ap4 7.1 cm ESV(MOD-sp4) 50.5 ml ESV(sp4-el) 53.6 ml EF(MOD-sp4) 57.1 % EF(sp4-el) 56.5 % LVAd ap2 33.3 cm\S\2 LVLd ap2 8.5 cm EDV(MOD-sp2) 108.5 ml EDV(sp2-el) 110.6 ml LVAs ap2 22.0 cm\S\2 LVLs ap2 6.9 cm ESV(MOD-sp2) 56.7 ml ESV(sp2-el) 59.6 ml EF(MOD-sp2) 47.8 % EF(sp2-el) 46.1 % LVLd %diff 3.3 % EDV(MOD-bp) 113.6 ml LVLs %diff -3.29 % ESV(MOD-bp) 53.4 ml EF(MOD-bp) 53.0 % SV(MOD-sp4) 67.1 ml SI(MOD-sp4) 29.5 ml/m\S\2 SV(MOD-sp2) 51.8 ml SI(MOD-sp2) 22.7 ml/m\S\2 SV(MOD-bp) 60.2 ml SI(MOD-bp) 26.4 ml/m\S\2 SV(sp4-el) 69.7 ml SI(sp4-el) 30.6 ml/m\S\2 SV(sp2-el) 51.0 ml SI(sp2-el) 22.4 ml/m\S\2 Doppler Measurements and Calculations MV E max peyton 101.4 cm/sec MV A max peyton 84.2 cm/sec MV E/A 1.2 MV P1/2t max peyton 101.8 cm/sec MV P1/2t 81.4 msec MVA(P1/2t) 2.7 cm\S\2 MV dec slope 366.4 cm/sec\S\2 MV dec time 0.19 sec Ao V2 max 158.8 cm/sec Ao max PG 10.1 mmHg Ao max PG (full) 3.2 mmHg HARINI(V,A) 2.3 cm\S\2 HARINI(V,D) 2.3 cm\S\2 LV V1 max PG 6.9 mmHg LV V1 max 131.1 cm/sec PA V2 max 116.5 cm/sec PA max PG 5.4 mmHg
== END | disposition home or self-care (01) ==
LOC: C.CPL 13:33
PROVIDERS: ATTEND Internal Medicine Hematology & Oncology
DX: C50.112 Malignant neoplasm of central portion of left female breast (principal)

== ENCOUNTER 2017-12-01 22:03 | Emergency (ER) | payer OTHER ==
[~2017-12-01] VITALS: Ht 170.2 cm; Wt 123.4 kg
[~2017-12-01 22:03] MED LIST changes: +AZEL30SP NAE; +CLR10 PO; +CYAN10005 PO; +MISCCAP80 PO; -PERFLUTREN LIPID MICROSPHERE (DEFINITY) IV ONE; +PYRI100T4 PO
[2017-12-01 22:10] VITALS: TEMP 37.2; Ht 170.2 cm; Wt 123.4 kg
[2017-12-02 01:04] VITALS: BP 140/72; PULSE 72; O2SAT 98
--- NOTE | 2017-12-02 06:37 | DIAGNOSTIC IMAGING REPORT ---
L-SPINE MIN 4 VIEWS ROUTINE CLINICAL HISTORY: Left leg paresthesias. History of cancer. COMPARISON STUDY: No previous studies for comparison. FINDINGS: There is a thoracolumbar dextroscoliosis. There are L1 and L2 superior endplate compression deformities, likely old. There are degenerative changes with disc space narrowing most pronounced the L5-S1 level. No destructive lesions are visualized on conventional radiographic imaging. There is no pathologic bowel dilatation. There are surgical clips within the right upper quadrant consistent with a prior cholecystectomy. IMPRESSION: L1 and L2, superior endplate compression deformities, likely old. Electronically signed by: Margarito Irizarry M.D. 12/02/2017 6:35 AM Dictated Date/Time: 12/02/2017 6:34 AM
--- NOTE | 2017-12-02 06:39 | DIAGNOSTIC IMAGING REPORT ---
L ANKLE MIN 3 VIEWS ROUTINE CLINICAL HISTORY: left ankle swelling PAIN, HISTORY OF CANCER. COMPARISON: None. DISCUSSION: No fractures or dislocations are visualized. There is calcaneal spurring. There are mild degenerative changes. There is a bony ossicle adjacent medial malleolus which is felt to be old. IMPRESSION: 1. Mild degenerative change 2. No evidence of fracture 3. No destructive lesions are visualized on conventional radiographic imaging Electronically signed by: Margarito Irizarry M.D. 12/02/2017 6:37 AM Dictated Date/Time: 12/02/2017 6:36 AM
--- NOTE | 2017-12-02 06:40 | DIAGNOSTIC IMAGING REPORT ---
ULTRASOUND L VENOUS DOPP LOWER EXT UNILAT CLINICAL HISTORY: Left leg swelling. COMPARISON STUDY: No previous studies for comparison. FINDINGS: Real-time and color flow Doppler imaging were performed. Flow was seen within the femoral, popliteal and calf veins with no intraluminal thrombus demonstrated. The saphenous vein is patent. IMPRESSION: No evidence of left lower extremity DVT. Electronically signed by: Margarito Irizarry M.D. 12/02/2017 6:38 AM Dictated Date/Time: 12/02/2017 6:38 AM
--- NOTE | 2017-12-03 00:11 | EMERGENCY ROOM VISIT NOTE ---
History First contact with patient: 22:13 Chief Complaint: LEG PAIN,LEG INJURY Stated Complaint: L FOOT AND LEG UP TO CALF NUMB History of Present Illness The patient is a 46 year old female who presents to the Emergency Room with complaints of pain and swelling into her left foot and ankle. The patient has a history of breast cancer and is undergoing radiation treatment. She has completed her most recent round of chemotherapy. The patient does not have distinct injury or trauma to explain her symptoms. She does report having some intermittent numbness of her left great toe and parts of her foot, however this is not constant. The patient does not have a history of DVT or PE, but is concerned that she may have a clot in the leg. She rates her current discomfort a 4/10. She is able to walk without difficulty. Review of Systems More than 10 systems were reviewed and otherwise negative with the exception of history of present illness. Past Medical/Surgical History Medical Problems: (1) Asthma (2) Hypothyroidism Surgical Problems: (1) History of appendectomy (2) History of cholecystectomy (3) Status post breast reduction Family History Cancer Diabetes mellitus Gallbladder disease Heart disease Hypertension Social History Smoking Status: Never Smoker Marital Status: single Occupation Status: employed Current/Historical Medications Scheduled Cyanocobalamin (Vitamin B-12), 1,000 MCG PO DAILY Levothyroxine Sodium (Levothyroxine Sodium), 1 TAB PO QAM Loratadine (Claritin), 10 MG PO DAILY Pyridoxine Hcl (Vitamin B6 100 Mg), 100 MG PO DAILY Scheduled PRN Albuterol Hfa (Ventolin Hfa), Unknown Dose INH Q6H PRN for ASTHMA Omeprazole (Prilosec), 20 MG PO DAILY PRN for STOMACH Physical Exam Vital Signs Date Time Temp Pulse Resp B/P (MAP) Pulse Ox O2 Delivery O2 Flow Rate FiO2 12/02/17 01:04 72 20 140/72 98 12/02/17 00:23 79 97 12/02/17 00:18 79 122/71 98 Room Air 12/01/17 22:10 37.2 87 18 156/78 98 Room Air Physical Exam VITALS: Vitals are noted on the nurse's note and reviewed by myself. Vital signs stable. GENERAL: Well-developed, well-nourished, white female, who is in no acute distress and resting comfortably. Patient is cooperative with the examination. HEAD: Normocephalic atraumatic. HEART: Regular rate and rhythm without murmurs gallops or rubs. LUNGS: Clear to auscultation bilaterally without wheezes, rales or rhonchi. No retractions or accessory muscle use. MUSCULOSKELETAL: No significant spinous process tenderness or lumbar spasm. No SI joint tenderness. No saddle paresthesias. There is some edema appreciated in the distal left lower leg just above the ankle when compared to the right. There is no obvious cellulitis or rigidity streaking. No palpable cord. Neurovascular status is intact to the left foot. Range of motion is intact. Pedal pulses intact. NEURO: Patient was alert and oriented to person place and time. CN II through XII grossly intact. No focal neurological deficits. Deep tendon reflexes 2+ throughout. SKIN: The skin was without rashes, erythema, edema, or bruising. Capillary refill less than 2 seconds. Medical Decision & Procedures ER Provider Diagnostic Interpretation: ULTRASOUND L VENOUS DOPP LOWER EXT UNILAT CLINICAL HISTORY: Left leg swelling. COMPARISON STUDY: No previous studies for comparison. FINDINGS: Real-time and color flow Doppler imaging were performed. Flow was seen within the femoral, popliteal and calf veins with no intraluminal thrombus demonstrated. The saphenous vein is patent. IMPRESSION: No evidence of left lower extremity DVT L ANKLE MIN 3 VIEWS ROUTINE CLINICAL HISTORY: left ankle swelling PAIN, HISTORY OF CANCER. COMPARISON: None. DISCUSSION: No fractures or dislocations are visualized. There is calcaneal spurring. There are mild degenerative changes. There is a bony ossicle adjacent medial malleolus which is felt to be old. IMPRESSION: 1. Mild degenerative change 2. No evidence of fracture 3. No destructive lesions are visualized on conventional radiographic imaging L-SPINE MIN 4 VIEWS ROUTINE CLINICAL HISTORY: Left leg paresthesias. History of cancer. COMPARISON STUDY: No previous studies for comparison. FINDINGS: There is a thoracolumbar dextroscoliosis. There are L1 and L2 superior endplate compression deformities, likely old. There are degenerative changes with disc space narrowing most pronounced the L5-S1 level. No destructive lesions are visualized on conventional radiographic imaging. There is no pathologic bowel dilatation. There are surgical clips within the right upper quadrant consistent with a prior cholecystectomy. IMPRESSION: L1 and L2, superior endplate compression deformities, likely old. ED Course Physical exam and history were performed. Nursing notes, EMR, and Medication List were personally reviewed. Patient appears to have some swelling into her left lower leg that began over the past few days. Patient has had some intermittent numbness into her left great toe, however this does not appear present at this time. I did elect to perform x-rays of her low back as well as her ankle which were reviewed by myself and radiology showing no acute process. Ultrasound was initially done to rule out DVT. The ultrasound was without acute findings, which was reassuring. On reevaluation the patient felt very comfortable and was okay with being discharged home. She has an upcoming appointment with her oncology team in 2 days, which appears quite reasonable. The patient may be having some dependent edema or possible some reaction to her chemotherapy/radiation. The patient was thoroughly invited back to the ER with any new, worsening, or concerning symptoms. The chart was completed utilizing [employer] Voice Recognition Software. Grammatical errors, random word insertions, pronoun errors, and incomplete sentences are an occasional consequence of this system due to software limitations, ambient noise, and hardware issues. Any formal questions or concerns about the content, text, or information contained within the body of this dictation should be directly addressed to the provider for clarification. . Medical Decision Differential diagnosis: Etiologies such as DVT, musculoskeletal, infection, joint effusion, trauma, lymphedema, idiopathic, CHF, as well as others were entertained.. Impression Primary Impression: Swelling of left lower extremity Departure Information Dispostion Home / Self-Care Condition GOOD Forms HOME CARE DOCUMENTATION FORM, IMPORTANT VISIT INFORMATION Patient Instructions My [facility] Additional Instructions You were seen and evaluated today on an emergency basis only. This is not a substitute for, or an effort to provide, complete comprehensive medical care. It is not possible to recognize and treat all injuries or illnesses in a single emergency department visit. For this reason it is recommended that you followup with your specialist on Saturday as scheduled for ongoing care and evaluation. You are welcome to return to the emergency department anytime with new, worsening, or concerning symptoms.
== END 2017-12-02 01:09 | disposition home or self-care (01) ==
LOC: C.EDB 22:04 → C.EDC 12-02 01:09
DX: R60.0 Localized edema (principal); C50.919 Malignant neoplasm of unspecified site of unspecified female breast; J45.909 Unspecified asthma, uncomplicated; E03.9 Hypothyroidism, unspecified; Z79.899 Other long term (current) drug therapy

== ENCOUNTER → 2018-02-06 | Outpatient (CLI) | payer OTHER ==
[~2018-02-06] MED LIST changes: -AZEL30SP NAE; +CHOL100010 PO; +MULT-1027 PO; -MULT-506 PO; +TAMO20TA9 PO; +VITACAP37 PO
[2018-02-06 14:25] VITALS: BP 134/80; PULSE 69; TEMP 36.8; O2SAT 96
--- NOTE | 2018-02-06 15:49 | Radiation Oncology Follow-Up ---
Radiation Oncology Follow-Up Date of Visit Feb 06, 2018. Reason For Visit One-month follow-up and cancer survivorship care plan Radiation Completion Date finished 01-09-18 Diagnosis (1) Malignant neoplasm of central portion of left breast in female, estrogen receptor positive Status: Acute Onset Date: 04/04/2017 Stage: ll Permanent Comment: Abnormal left breast mammogram Status post ultrasound-guided core needle biopsies April 04, 2017 Infiltrating ductal carcinoma Estrogen receptor positive, progesterone receptor positive, HER-2/cliff negative Status post lumpectomy and sentinel lymph node biopsy May 20, 2017 Invasive mammary carcinoma, grade 1 Stage pT2 pN1a M0 Status post systemic chemotherapy with dose dense Adriamycin and Cytoxan followed by dose dense Taxol for 2 cycles and then weekly Taxol , chemotherapy completed October 18, 2017 Status post completion of radiation therapy January 09, 2018. She received 6640 cGy. Treatment was given to the left breast, supraclavicular area, and axilla. Last Edited By: Malu Dao on Jan 22, 2018 08:46 History of Present Illness Ms. Bucio has a family history of breast cancer with a paternal grandmother. She has been followed with screening mammograms. On March 26, 2017 she underwent bilateral digital screening mammograms. This showed some possible skin thickening with architectural distortion and a newly visualized convex appearance of the left anterior breast behind the nipple. Further imaging was recommended. On April 01, 2017 patient underwent bilateral breast ultrasounds. Targeted ultrasound was performed in the periareolar and retroareolar area of the left breast. There was a half-pinon shaped area of smooth thickening of the medial left areola. On ultrasound there was focal thickening of the left areola measuring up to 9 mm in thickness. Patient had a previous bilateral breast reduction in 1996 and it was thought that this could be an explanation for the changes however these changes are more prominent compared to prior studies and therefore for felt to be indeterminant. An ultrasound-guided biopsy of the left breast was performed on April 04, 2017. This revealed an infiltrating ductal carcinoma in multiple cores with Dione grade 2. ER receptors were strongly positive, CA receptors are strongly positive and HER-2/cliff overexpression was negative. Evaluation by fish confirmed the negative finding. Case: [id number]. Patient was seen by Dr. Tomlin and on May 20, 2017 patient underwent partial mastectomy and sentinel node biopsy. A partial mastectomy specimen revealed a tumor measuring 2.1 x 1.1 x 1.5 cm. This was a [place] grade 1 of 3 with no DCIS identified. The invasive tumor directly invaded into the dermis without skin ulceration. There was no definite involvement of the epidermis. The nipple areolar complex was included in the specimen. A total of 4 sentinel nodes were taken. One sentinel node was positive for a macro metastasis greater than 2 mm measuring 2.5 mm. One lymph node was positive for a micrometastasis measuring 2.0 mm 2 lymph nodes were benign. There was no extranodal extension identified and no lymphovascular invasion identified. The margins of the procedure were uninvolved by invasive carcinoma with the closest margin at 5 mm representing the superior margin. Case: [id number]-S. The final pathologic staging was pT2 pN1a. ER positive, CA positive and HER-2/cliff negative. New AJCC pathologic staging was therefore a 1b. Patient was seen by Dr. Pk De Oliveira who recommended adjuvant systemic chemotherapy. He recommended doxorubicin and cyclophosphamide dose dense with Paclitaxel. She did ultimately complete 4 cycles of dose dense AC from 2016 through 07/31/2017. She tolerated that well. She started with dose dense Taxol on 08/16/2017 and received 2 doses. She was then switched to weekly Taxol for cycle 3 and 4 due to worsening neuropathy. Patient completed her systemic therapy on October 18, 2017. We were asked to see the patient in referral to evaluate and discuss with her the role of adjuvant radiation. Status post completion of radiation therapy January 09, 2018. She received 6640 cGy. Treatment to the left breast, supraclavicular area, and axilla. Interim History She has been doing well over the past month. The irritation of the skin that occurred at the end of treatment has steadily improved. She stopped in last week due to an area that was open. There was a very small wound in the central portion of the incision. Prescription was given for Silvadene. This area has now closed and is steadily improving. He does continue to have some dark discoloration of the skin. She is noted no masses or tenderness and no change of the axilla. She has had no swelling of her arm. She is on tamoxifen and denies side effects. We previously discussed prevention of lymphedema. She would like to be seen at the lymphedema clinic for an evaluation and discuss ordering a sleeve to wear when she is traveling. Allergies Coded Allergies: BEE STING (Verified Allergy, Severe, ANAPHYLAXIS, 01/17/18) Lisinopril (Verified Allergy, Severe, internal hives, 01/17/18) Penicillins (Verified Adverse Reaction, Unknown, INCREASES REFLUX, 01/17/18 ) Home Medications Scheduled Cholecalciferol (Vitamin D), 1 TAB PO DAILY Cyanocobalamin (Vitamin B-12), 1,000 MCG PO DAILY Levothyroxine Sodium (Levothyroxine Sodium), 1 TAB PO QAM Loratadine (Claritin), 10 MG PO DAILY Multiple Vitamin (Multi Vitamin), 1 TAB PO DAILY Probiotic Product (Probiotic), 1 CAP PO QAM Pyridoxine Hcl (Vitamin B6 100 Mg), 100 MG PO QAM Tamoxifen (Nolvadex), 20 MG PO QAM Vitamin E (E-400), 1 TAB PO QPM Scheduled PRN Albuterol Hfa (Ventolin Hfa), Unknown Dose INH Q6H PRN for ASTHMA Omeprazole (Prilosec), 20 MG PO DAILY PRN for STOMACH Review of Systems Gastrointestinal: Symptoms: WNL Oral: Symptoms: No Problems Respiratory: Symptoms: WNL Urinary: Symptoms: Nocturia Comments: occ nocturia Skin: Symptoms: No Problems Breast: Right Upper Arm Measurement: 34.5 Right Mid Arm Measurement: 28.0 Right Wrist Measurement: 16.4 Left Upper Arm Measurement: 37.5 Left Mid Arm Measurement: 28.0 Left Wrist Measurement: 16.5 Arm Dominence: Right Patient Cosmetic Evaluation: Good Staff Cosmetic Evalaluation: Good Additional Notes: She completed a distress management report and answer "no" to all questions. Physical Exam Vital Signs Date Time Temp Pulse Resp B/P (MAP) Pulse Ox O2 Delivery O2 Flow Rate FiO2 02/06/18 14:25 36.8 69 16 134/80 96 ECOG Performance Status: 0 General Appearance: no apparent distress Eyes: normal inspection, EOMI ENT: normal ENT inspection, hearing grossly normal Neck: no adenopathy, thyroid normal Respiratory/Chest: lungs clear, no respiratory distress, no accessory muscle use Breast: Breast examination reveals well-healed incision of the left breast. The nipple is absent. There are scars from previous breast reduction surgery. There are no masses or tenderness and no axillary adenopathy. She has resolving hyperpigmentation. There is mild dry desquamation. She also has edema in the lower quadrants of the breast. Using the [place] score cosmesis she has a fair outcome currently. The right breast showed no masses or tenderness and no axillary adenopathy. Cardiovascular: regular rate, rhythm, no gallop, no murmur Extremities: no pedal edema Neurologic/Psychiatric: no motor/sensory deficits, alert, normal mood/affect Skin: warm/dry Pain Management Patient Reports Pain: No Side: Bilateral Patient Preferred Pain Scale: 0 - 10 Initial Pain Intensity: 0.0 Pain Management Plan She denies pain therefore requires no pain management. Laboratory Laboratory Results: not applicable Pathology Pathology Results: were reviewed, and pertinent findings noted in HPI Imaging Imaging Studies: not applicable Assessment & Plan Plan: She will continue regular follow-up with her primary care provider and medical oncologist. She continues on tamoxifen. We will refer her to the lymphedema clinic for evaluation and prevention of lymphedema. They can also treat the edema of the left breast. Today we completed a cancer survivorship care plan. A copy of the document was given to the patient. She was given a survivorship booklet. We discussed her staging. Following the AJCC guidelines for 2017 she is a stage II. Following AJCC guidelines for 2018 she would be a stage Ib I reviewed this with her and she had a good understanding of the staging mechanisms. We asked her to return to our office in 6 months. She may call if she has any questions or concerns in the interim. She has signed up to participate in a protocol study that will encourage diet and exercise in cancer patients. Total Time In Follow-Up I spent 20 minutes speaking to the patient in performing examination. I spent 20 minutes reviewing information, preparing the survivorship document, and completing this note. Copy To Shawn Tomlin D.O.; Evelyn Shah D.O.; Pk De Oliveira MD
== END | disposition home or self-care (01) ==
LOC: C.ONC 14:22
PROVIDERS: ATTEND Physician Assistant Medical
DX: Z08 Encounter for follow-up examination after completed treatment for malignant neoplasm (principal); Z92.3 Personal history of irradiation; Z85.3 Personal history of malignant neoplasm of breast